=== PATIENT | female | born 1995 | race Caucasian/White ===

== ENCOUNTER 2016-09-02 02:53 | Emergency (ER) | payer OTHER | END 2016-09-02 03:58 | disposition home or self-care (01) | LOC: ER 02:53 | DX: S90.112A Contusion of left great toe without damage to nail, initial encounter (principal); W22.09XA Striking against other stationary object, initial encounter; Y92.009 Unspecified place in unspecified non-institutional (private) residence as the place of occurrence of the external cause; F17.210 Nicotine dependence, cigarettes, uncomplicated | CPT/HCPCS: 73660; 99283; 99283-25 ==